=== PATIENT | female | born 1950 | race Caucasian/White ===

== ENCOUNTER 2017-05-16 09:37 | Outpatient (CLI) | payer OTHER | END 2017-05-16 19:32 | disposition home or self-care (01) | LOC: SMA 09:37 | PROVIDERS: ATTEND Family Medicine | DX: N63.20 Unspecified lump in the left breast, unspecified quadrant (principal); N63.10 Unspecified lump in the right breast, unspecified quadrant; R92.1 Mammographic calcification found on diagnostic imaging of breast | CPT/HCPCS: 76641; G0204 ==

== ENCOUNTER 2018-06-13 08:57 | Outpatient (CLI) | payer OTHER, MEDICAID | END 2018-06-13 19:26 | disposition home or self-care (01) | LOC: SMA 08:57 | PROVIDERS: ATTEND Family Medicine | DX: Z12.31 Encounter for screening mammogram for malignant neoplasm of breast (principal) | CPT/HCPCS: 77067 ==

== ENCOUNTER 2020-03-18 10:50 | Outpatient (CLI) | payer OTHER | END 2020-03-18 20:47 | disposition home or self-care (01) | LOC: SMA 10:50 | DX: Z12.31 Encounter for screening mammogram for malignant neoplasm of breast (principal) | CPT/HCPCS: 77067 ==